=== PATIENT | female | born 1975 | race Caucasian/White ===

== ENCOUNTER → 2016-06-24 | Outpatient (CLI) | payer OTHER ==
[~2016-06-24] MED LIST: CALCTAB5 PO; CYCL10TA6 PO; HYDR-5688 PO; IBUP-1277 PO; MULT-506 PO
== END | disposition home or self-care (01) ==
LOC: C.PAPS 10:03
PROVIDERS: ATTEND Obstetrics & Gynecology
DX: Z01.419 Encounter for gynecological examination (general) (routine) without abnormal findings (principal); Z86.008 Personal history of in-situ neoplasm of other site

== ENCOUNTER → 2016-11-01 | Outpatient (CLI) | payer BC ==
--- NOTE | 2016-11-04 13:04 | MAMMOGRAPHY REPORT ---
BILATERAL DIGITAL SCREENING MAMMOGRAM TOMOSYNTHESIS WITH CAD: 11/01/2016 TECHNIQUE: Breast tomosynthesis in addition to standard 2D mammography was performed. Current study was also evaluated with a Computer Aided Detection (CAD) system. COMPARISON: Comparison is made to exams dated: 10/30/2015 mammogram, 10/25/2014 mammogram, 04/25/2014 mammogram, and 09/21/2009 mammogram - [facility]. BREAST COMPOSITION: The tissue of both breasts is extremely dense, which lowers the sensitivity of mammography. FINDINGS: No suspicious masses, calcifications, or areas of architectural distortion are noted in e ither breast. There has been no significant interval change compared to prior exams. Bilateral angela gn-appearing calcifications are not significantly changed. IMPRESSION: ACR BI-RADS CATEGORY 2: BENIGN There is no mammographic evidence of malignancy. A 1 year screening mammogram is recommended. The p atient will receive written notification of the results. Approximately 10% of breast cancers are not detected with mammography. A negative mammographic repor t should not delay biopsy if a clinically suggestive mass is present. Christine Bailey M.D. ah/:11/02/2016 13:56:13 Senior Billing Consultant: Leila CHADWICK(R)(M), [facility] letter sent: Normal 1/2 BI-RADS Code: ACR BI-RADS Category 2: Benign
== END | disposition home or self-care (01) ==
LOC: C.MAMM 07:38
PROVIDERS: ATTEND Obstetrics & Gynecology
DX: Z12.31 Encounter for screening mammogram for malignant neoplasm of breast (principal)

== ENCOUNTER → 2017-01-07 | Outpatient (CLI) | payer BC ==
--- NOTE | 2017-01-07 13:32 | MAMMOGRAPHY REPORT ---
UNILATERAL RIGHT DIGITAL DIAGNOSTIC MAMMOGRAM TOMOSYNTHESIS WITH CAD AND TARGETED RIGHT ULTRASOUND: CLINICAL HISTORY: 41-year-old woman presents after she noticed a lump in the upper outer quadrant of the right breast about one month ago. Her doctor confirmed a lump and also felt additional nodularit y slightly inferior and closer to the nipple then the first lump. Family history of breast cancer = grandmother and great aunt. Mother has a history of fibrocystic change. TECHNIQUE: Right CC and MLO 2-D digital anterolisthesis images were obtained. Current study was also evaluated with a Computer Aided Detection (CAD) system. COMPARISON: Comparison is made to exams dated: 11/01/2016 mammogram, 10/30/2015 mammogram, 10/25/2014 m ammogram, 04/25/2014 ultrasound, 04/25/2014 mammogram, and 09/21/2009 mammogram - [facility]. BREAST COMPOSITION: The tissue of the right breast is extremely dense, which lowers the sensitivity of mammography. FINDINGS: A linear scar marker overlies the 6:00 anterior right breast. A triangular palpable marke r overlies the upper outer anterior right breast. There are scattered and grouped benign-appearing p unctate microcalcifications throughout the right breast, that appears similar as on prior mammograms. No obvious mass, focal area of architectural distortion or new suspicious microcavitation are seen. Further evaluation with ultrasound was performed. Targeted ultrasound was performed in the upper outer quadrant of the right breast, with particular at tention to the primary palpable lump in the 10:00 axis, 3 cm from the nipple. On palpation, there is a 2 cm firm mobile mass. On ultrasound, there is an oval parallel circumscribed anechoic benign sim ple cyst measuring 1.7 x 1.1 x 1.9 cm. This correlates as palpated and is benign. Several other cys ts and clusters of cysts are seen throughout the upper outer quadrant, in particular within the 9:00 axis, 2 cm from the nipple, and in the 9:30 breast, 3 cm from the nipple. No suspicious solid mass i s identified. IMPRESSION: ACR BI-RADS CATEGORY 2: BENIGN, TARGETED ULTRASOUND ACR BI-RADS CATEGORY 2: BENIGN 1. The new palpable lump in the 10:00 right breast correlates with an anechoic benign simple cyst on ultrasound. This is not well seen mammographically. 2. Incidental note is made of other scattered cysts and clusters of benign simple cysts throughout t he right upper outer quadrant on ultrasound, compatible with benign fibrocystic changes. There is no mammographic or targeted sonographic evidence of malignancy. 3. Recommend routine mammography in October 2017, unless there is any new palpable concern. Approximately 10% of breast cancers are not detected with mammography. A negative mammographic report should not delay biopsy if a clinically suggestive mass is present. Aury Davison M.D. ay/:01/07/2017 09:39:47 [employer]er Grain: Flako Guillen RT(R)(M), [facility] letter sent: Normal 1/2 BI-RADS Code: ACR BI-RADS Category 2: Benign Ultrasound BI-RADS: ACR BI-RADS Category 2: Benign
== END | disposition home or self-care (01) ==
LOC: C.MAMM 08:20
PROVIDERS: ATTEND Nurse Practitioner Family
DX: N63 Unspecified lump in breast (principal); N60.11 Diffuse cystic mastopathy of right breast

== ENCOUNTER → 2017-07-01 | Outpatient (CLI) | payer BC | END | disposition home or self-care (01) | LOC: C.PAPS 16:06 | PROVIDERS: ATTEND Obstetrics & Gynecology | DX: Z01.419 Encounter for gynecological examination (general) (routine) without abnormal findings (principal); Z86.001 Personal history of in-situ neoplasm of cervix uteri ==

== ENCOUNTER → 2017-11-04 | Outpatient (CLI) | payer BC ==
--- NOTE | 2017-11-05 14:22 | MAMMOGRAPHY REPORT ---
BILATERAL DIGITAL SCREENING MAMMOGRAM TOMOSYNTHESIS WITH CAD: 11/04/2017 CLINICAL HISTORY: Routine screening. Patient has no complaints. A linear scar marker overlies the inferior right breast, denoting a scar from prior surgical excision . There are stable groupings of punctate microcalcifications and diffuse TECHNIQUE: Breast tomosynthesis in addition to standard 2D mammography was performed. Current study was also evaluated with a Computer Aided Detection (CAD) system. COMPARISON: Comparison is made to exams dated: 01/07/2017 ultrasound, 01/07/2017 mammogram, 11/01/2016 mammogram, 10/30/2015 mammogram, 10/25/2014 mammogram, and 04/25/2014 ultrasound - [facility]. BREAST COMPOSITION: The tissue of both breasts is extremely dense, which lowers the sensitivity of m ammography. FINDINGS: A linear scar marker overlies the inferior right breast, denoting a scar from prior surgica l excision. There are stable groupings of punctate microcalcifications and diffuse punctate microcal cifications bilaterally which are stable comparing to prior mammograms. There is a circumscribed and obscured mass in the 10:00 right breast previously documented to represent a simple cyst on ultrasou nd. No obvious new mass, architectural distortion or new cluster of microcalcifications is seen. IMPRESSION: ACR BI-RADS CATEGORY 1: NEGATIVE There is no mammographic evidence of malignancy. A 1 year screening mammogram is recommended. The pa tient will receive written notification of the results. Approximately 10% of breast cancers are not detected with mammography. A negative mammographic report should not delay biopsy if a clinically suggestive mass is present. Aury Davison M.D. ay/:11/04/2017 19:51:11 Financial Center Manager: Marlen CHADWICK(Aleksandra)([place]), [facility] letter sent: Normal 1/2 BI-RADS Code: ACR BI-RADS Category 1: Negative
== END | disposition home or self-care (01) ==
LOC: C.MAMM 13:06
PROVIDERS: ATTEND Obstetrics & Gynecology
DX: Z12.31 Encounter for screening mammogram for malignant neoplasm of breast (principal)